=== PATIENT | female | born 1960 | race Caucasian/White ===

== ENCOUNTER → 2023-12-13 | Outpatient (CLI) | payer OTHER, SELFPAY ==
[2023-12-13 08:34] LABS: Basophils # (Auto) 0.1 Thou/mm3 (0.0-0.2); Basophils % (Auto) 1 % (0-2.5); Eosinophils # (Auto) 0.1 Thou/mm3 (0.0-0.5); Eosinophils % (Auto) 1 % (0-10); Hematocrit 43.2 % (36.0-46.0); Hemoglobin 14.1 g/dL (12.0-16.0); Immature Granulocytes % (Auto) 0 % (0-0); Immature Granulocytes Auto 0.01 Thou/mm3 (0.00-0.00); Lymphocytes # (Auto) 2.1 Thou/mm3 (1.0-4.8); Lymphocytes % (Auto) 32 % (10-50); Mean Corpuscular HGB Conc 32.6 g/dl (31.0-37.0); Mean Corpuscular Hemoglobin 30.3 pg (25.0-35.0); Mean Corpuscular Volume 93 fL (80-100); Monocytes # (Auto) 0.7 Thou/mm3 (0.0-0.8); Monocytes % (Auto) 11 % (0-12); Neutrophils # (Auto) 3.6 Thou/mm3 (1.8-7.7); Neutrophils % (Auto) 55 % (37-80); Nucleated Red Blood Cell % 0 /100 WBC (0); Platelet Count 264 Thou/mm3 (140-440); RDW Standard Deviation 42.5 fL (36.4-46.3); Red Blood Count 4.66 Miln/mm3 (4.00-5.20); White Blood Count 6.6 Thou/mm3 (3.6-11.0)
[2023-12-13 08:51] LABS: Alanine Aminotransferase 22 U/L (10-49); Albumin, Serum 4.8 gm/dL (3.4-4.8); Albumin/Globulin Ratio 2.2 (1.2-2.2); Alkaline Phosphatase 93 U/L (46-116); Anion Gap 5 (7-16); Aspartate Amino Transferase 24 U/L (0-34); BUN/Creatinine Ratio 21 Ratio (12-20); Bilirubin,Total 0.5 mg/dL (0.3-1.2); Blood Urea Nitrogen 17 mg/dL (9-23); Calcium 9.7 mg/dL (8.3-10.6); Calcium (Corrected) 9.7 mg/dL (8.5-10.1); Carbon Dioxide 27.9 mMol/L (20.0-31.0); Cardiac Risk Estimate 2.5 RATIO (3.7-5.6); Chloride 107 mMol/L (98-107); Cholesterol 214 mg/dL (132-200); Creatinine (Component) 0.8 mg/dL (0.6-1.3); Globulin 2.2 gm/dL (2.3-3.5); Glucose 98 mg/dL (74-106); HDL Cholesterol 86 mg/dL (40-60); LDL Cholesterol,Calculated 116 mg/dL (0-130); Osmolality,Calculated 280 (275-295); Potassium 4.4 mMol/L (3.4-5.1); Sodium 140 mMol/L (136-145); Thyroid Stimulating Hormone 0.04 uIU/mL (0.55-4.78); Triglycerides 60 mg/dL (30-150); Uric Acid 4.5 mg/dL (3.1-7.8); eGFR > 60 See Note
[2023-12-13 08:56] LABS: Collection Type, Urine Clean Catch
[2023-12-13 09:00] LABS: Follicle Stimulating Hormone 110.53 mIU/mL (See Note); Vitamin B12 617 pg/mL (211-911); Vitamin D 25 Hydroxy Total 34.1 ng/mL (7.3-40.2)
[2023-12-13 09:30] LABS: Glucose Estimated Average 103 mg/dL (80-131); Hemoglobin A1C 5.2 % Hgb (4.8-6.0)
[2023-12-13 09:40] LABS: Bilirubin,Urine Negative (Negative); Blood,Urine Trace (Negative); Clarity,Urine Clear (Clear/Hazy); Color,Urine Lt-Yellow (Lt Yel-Yel); Glucose, Urine Negative (Negative); Ketones,Urine Negative (Negative); Leukocyte Esterase,Urine Negative (Negative); Nitrite,Urine Negative (Negative); PH,Urine 5.5 (5.0-7.0); Protein,Urine Negative (Neg - Trace); RBC,Urine 3 /hpf (0-3); Specific Gravity,Urine 1.018 (1.001-1.035); Squamous Epithelial Cell,Urine 1 /hpf (0-5); Urobilinogen,Urine Negative mg/dL (0.0-1.0); WBC,Urine 1 /hpf (0-5)
[2023-12-21 06:50] LABS: Estrogen, Total, Serum* 93 pg/mL; Luteinizing Hormone* 42.1 mIU/mL; Progesterone,LC/MS* <0.1 ng/mL
== END | disposition home or self-care (01) ==
LOC: COPL 07:39
PROVIDERS: PCP Internal Medicine; Referring Provider Internal Medicine; Visit Provider Internal Medicine
DX: Z00.00 Encounter for general adult medical examination without abnormal findings (principal)
CPT/HCPCS: 36415; 80053; 80061; 81001; 82306; 82607; 82672; 83001; 83002; 83036; 84144; 84443; 84550; 85025

== ENCOUNTER 2023-12-24 05:50 | Emergency (ER) | payer OTHER, SELFPAY ==
[2023-12-24 05:51] VITALS: PULSE 78; RESP 18; O2SAT 98
[2023-12-24 05:55] VITALS: BP 142/69; PULSE 72; RESP 19; TEMP 35.8; O2SAT 95; BMI 26.4
--- NOTE | 2023-12-24 05:56 | PD.EDALLER ---
ED Allergic Reaction RME/HPI General Chief complaint: Allergic Reaction Stated complaint: ALLERGIC REACTION Time Seen by Provider: 12/24/23 05:56 Arrival date/time: 12/24/23 05:50 RME / HPI RME / HPI narrative: 63 year old female presents to the emergency department with a diffuse rash. That continued to get worse from head to toe. The patient could not find her Benadryl and decided to take her EpiPen. The patient denies throat swelling, shortness of breath, chest pain, or change in voice. No identifiable source found. No known allergies. The patient denies starting or stopping medications, toxic ingestions, international travel, unusual foods, changes in detergents, or other unusual activities. No recent travel. The patient has been on an KIM inhibitor for several years without problems. This is happened 4 other times in the last 2 to 3 months Related Data Home Medications ?Medication ?Instructions ?Recorded ?Confirmed citalopram 20 mg tablet 20 mg PO HS 09/30/18 11/04/20 thyroid 180 mg tablet 0.18 mg PO QDAY 11/04/20 11/04/20 Previous Rx's ?Medication ?Instructions ?Recorded conj estrogen-medroxyprogesterone 1 tab PO QDAY 28 days #28 tabs 10/17/23 0.3 mg-1.5 mg tablet (Prempro) Allergies Allergy/AdvReac Type Severity Reaction Status Date / Time tobramycin Allergy Mild Redness of Verified 09/30/18 10:43 Skin ED Exam Narrative Physical exam: General: Non-toxic, well appearing, in no acute distress, and appears state age and well developed and well nourished. Vital signs: Normal. Head: Normocephalic and atraumatic. Eyes: Aproptotic, extraocular movements intact, and pupils equally round. Nose: Nares without evidence of rhinorrhea. Mouth: No oral edema. Throat: No uvula edema. Tolerating secretions. Neck: Supple without menigismus without lympadenopathy. Heart: Regular rate and rhythm without murmur, gallops, or rubs. Lungs: Clear to auscultation without wheezing, rales, or rhonchi. Abdomen: Soft, nontender, no masses, and not distended. Back: No costovertebral angle tenderness. Neurological: Alert and oriented to person, place, and time. Gait normal. Extremities: no cyanosis or edema. Skin: Sharply demarcated mildly erythematous and edematous plaques over entire upper and lower extremities. No noted involvement of the palms, soles, mucus membranes, or conjunctiva. Course Quality Measures none Orders Category Date Time Status Dexamethasone Inj [Decadron Inj] Med 12/24/23 06:04 Discontinued 10 mg IV X1 ONE Dexamethasone Inj [Decadron Inj] Med 12/24/23 06:04 Discontinued 10 mg PO X1 ONE DiphenhydrAMINE INJ [Benadryl Inj] Med 12/24/23 06:04 Discontinued 25 mg IVP X1 ONE Famotidine Inj [Pepcid Inj] Med 12/24/23 06:04 Discontinued 20 mg IVP X1 ONE Vital Signs Vital signs: Vital Signs Temperature 96.5 F L 12/24/23 05:55 Pulse Rate 72 12/24/23 05:55 Respiratory Rate 19 12/24/23 05:55 Blood Pressure 142/69 H 12/24/23 05:55 Pulse Oximetry (%) 95 12/24/23 05:55 Oxygen Delivery Method Room Air 12/24/23 05:55 Allergic Reaction MDM Narrative MDM Narrative:: Arrived with normal O2 saturation on room air without complaints of shortness of breath, tolerating oral secretions, and with no evidence of airway involvement. Diffuse urticarial rash from unknown source. Zantac, Benadryl, and solumedrol given intravenously. 0600: History and physical exam was reviewed, no labs are ordered, and patient is discharged to Dr. Fuentes pending reevaluation and final disposition. Patient data External records reviewed:: [facility] previous records (Allergic reaction) Clinical information provided by:: patient Social determinants that could affect healthcare access:: none Patient has the following chronic illnesses:: Recurrent hives and allergic reaction How is presenting disease/condition affected by chronic disease/condition?: exacerbated by Evaluation data The following diagnostics were reviewed and interpreted by me:: other (specify) (None) Lab and/or radiology exams considered but not ordered:: None Interpretation Summary: None Medications / Prescriptions Medications or Prescriptions considered but not ordered:: None Medication administrations:: Medication Administration History Discontinued Medications Dexamethasone Sodium Phosphate (Dexamethasone Sod Phos Inj 10 Mg/Ml Vial) 10 mg PO X1 ONE Stop: 12/24/23 06:05 Last Admin: 11/15/24 06:14 Dose: Not Given Documented By: FAUSTO Non-Admin Reason: Cancelled by Provider Dexamethasone Sodium Phosphate (Dexamethasone Sod Phos Inj 10 Mg/Ml Vial) 10 mg IV X1 ONE Stop: 12/24/23 06:05 Last Admin: 12/24/23 06:16 Dose: 10 mg Documented By: FAUSTO Diphenhydramine HCl (Diphenhydramine Inj 50 Mg/Ml Vial) 25 mg IVP X1 ONE Stop: 12/24/23 06:05 Last Admin: 12/24/23 06:15 Dose: 25 mg Documented By: FAUSTO Famotidine (Famotidine Inj 10 Mg/Ml Vial 2 Ml) 20 mg IVP X1 ONE Stop: 12/24/23 06:05 Last Admin: 12/24/23 06:16 Dose: 20 mg Documented By: FAUSTO None Consultations Consultation(s) initiated? (list below): No Consultation #1 (Physician, Specialty, Details): None Diagnosis Differential Diagnosis allergic reaction: anaphylaxis, allergic reaction, angioedema, contact dermatitis, adverse reaction to drug and viral enanthem Most likely diagnosis given after review of the tests above:: Allergic reaction Admission Indicated Admission indicated?: not indicated Explain why admission is indicated or not indicated:: Patient signed out to 0 600 physician pending reevaluation and final disposition Admission Request Was there a request for admission?: No Disposition Plan Disposition Plan: other (specify) (Patient is signed out to 0 600 physician pending final disposition and reevaluation) Discharge Plan Plan Disposition Comment: Discharge Prescriptions/Referrals Prescriptions/Med Rec: No Action citalopram 20 mg Tablet 20 mg PO HS thyroid 180 mg Tablet 0.18 mg PO QDAY Prempro 0.3-1.5 mg tablet 1 tab PO QDAY 28 Days Qty: 28 12RF Problem List Clinical Impression: Allergic reaction Patient/Caregiver Discharge Instructions Print Language: Maori
[2023-12-24] MEDS: DiphenhydrAMINE INJ 50 MG/ML VIAL 25 MG IVP (06:15)
[2023-12-24] MEDS: DEXAMETHASONE SOD PHOS INJ 10 MG/ML VIAL IV (06:16)
[2023-12-24] MEDS: FAMOTIDINE INJ 10 MG/ML VIAL 2 ML 20 MG IVP (06:16)
[2023-12-24 07:24] VITALS: BP 113/67; PULSE 63; RESP 16; TEMP 36.6; O2SAT 99
--- NOTE | 2023-12-24 07:31 | PC.NURSE ---
Spoke to Dr. Fuentes at this time regarding pt's POC; per Dr. Fuentes, I will need to re-evaluate pt first before discharge. Please inform pt that this process might take about an hour.
--- NOTE | 2023-12-24 08:28 | EDNOTE_ITS ---
Emergency Room Addendum Addendum Narrative: The patient was signed out to me from Dr. calix pending disposition. The patient has received medication by her. Please see her note. 8:30 AM, the patient is alert awake oriented x 4 GCS of 15. HEENT showing normal throat. Lungs are clear full and equal. Heart is normal. Skin examination she states that the skin rash is gone and I did not find any. That the redness is gone and I did not find any. 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 Please use it appropriately. Benadryl, prednisone and Pepcid as prescribed. See your doctor for recheck in couple days. Return the nearest ER if problems occur
[2023-12-24 08:53] VITALS: BP 119/70; PULSE 77; RESP 15; TEMP 37; O2SAT 97
== END 2023-12-24 08:55 | disposition home or self-care (01) ==
PROVIDERS: Emergency Provider Emergency Medicine; PCP Internal Medicine
DX: T78.40XA Allergy, unspecified, initial encounter (principal); X58.XXXA Exposure to other specified factors, initial encounter
CPT/HCPCS: 99284; J1100; J1200; J3490

== ENCOUNTER → 2024-01-10 | Outpatient (CLI) | payer OTHER, SELFPAY ==
[2024-01-10 08:03] LABS: Misc Send Out* See Sep Rpt
[2024-01-10 08:05] LABS: Misc Send Out* See Sep Rpt
[2024-01-10 08:58] LABS: C-Reactive Protein < 0.4 mg/dL (0.0-0.9)
[2024-01-17 06:49] LABS: ANA Screen, IFA POSITIVE (NEGATIVE); CCP Antibody (IgG)* <16 Units; Complement Component C3* 121 mg/dL (83-193); Complement Component C4c* 22 mg/dL (15-57); DNA (ds) Antibody* <1 IU/mL; IgE, Serum* 40 kU/L (114 OR LESS)
== END | disposition home or self-care (01) ==
LOC: SLAB 07:54
PROVIDERS: PCP Internal Medicine; Referring Provider Allergy & Immunology; Visit Provider Allergy & Immunology
DX: T78.2XXA Anaphylactic shock, unspecified, initial encounter (principal); L50.0 Allergic urticaria; R23.4 Changes in skin texture
CPT/HCPCS: 36415; 82785; 83520; 86003; 86008; 86038; 86039; 86140; 86160; 86200; 86225; 86235

== ENCOUNTER → 2024-02-15 | Outpatient (CLI) | payer OTHER, SELFPAY ==
[2024-02-16 10:05] LABS: BVAG Candida Negative (Negative); Bacterial Vaginosis Markers Negative (Negative); Candida glabrata Negative (Negative); Candida krusei PCR Negative (Negative); Trichomonas Negative (Negative)
== END | disposition home or self-care (01) ==
LOC: SLDO 12:44
PROVIDERS: Referring Provider Specialist; Visit Provider Specialist
DX: B37.89 Other sites of candidiasis (principal); N76.0 Acute vaginitis; A59.01 Trichomonal vulvovaginitis
CPT/HCPCS: 81514

== ENCOUNTER → 2024-05-24 | Outpatient (CLI) | payer OTHER, SELFPAY ==
[2024-05-24 11:49] LABS: Free T4 (Free Thyroxine) 0.85 ng/dL (0.89-1.76); Thyroid Stimulating Hormone 0.36 uIU/mL (0.55-4.78)
== END | disposition home or self-care (01) ==
LOC: COPL 09:57
PROVIDERS: PCP Internal Medicine; Referring Provider Internal Medicine; Visit Provider Internal Medicine
DX: E03.9 Hypothyroidism, unspecified (principal)
CPT/HCPCS: 36415; 84439; 84443

== ENCOUNTER → 2024-10-30 | Outpatient (CLI) | payer OTHER, SELFPAY ==
--- NOTE | 2024-10-30 | XR_ITS ---
Examination: Wrist, right 3 views Technique: Wrist AP, oblique, lateral 3 views Date and time of exam: October 30, 2024 1033 hours INDICATIONS: Swelling on the right side of the wrist beginning 3 days ago. 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 No fractures No erosive arthritis IMPRESSION: Mild osteoarthritis
== END | disposition home or self-care (01) ==
LOC: CDIM 09:56
PROVIDERS: PCP Internal Medicine; Referring Provider Internal Medicine; Visit Provider Internal Medicine
DX: M19.031 Primary osteoarthritis, right wrist (principal)
CPT/HCPCS: 73110

== ENCOUNTER → 2024-11-30 | Outpatient (CLI) | payer OTHER, SELFPAY ==
--- NOTE | 2024-11-30 16:00 | XR_ITS ---
Examination: Breast ultrasound, unilateral, right Date and time of exam: November 30, 2024, 1625 hours INDICATIONS: History of right stereotactic breast biopsy, Technique: Real-time gonzalez scale ultrasonographic imaging performed right breast including all 4 quadrants as well as nipple retroareolar and axillary region. Findings: No cystic or solid mass involving the right breast IMPRESSION: BI-RADS Category 1: Negative study
--- NOTE | 2024-11-30 16:45 | XR_ITS ---
Examination: Screening digital mammography, bilateral Computer aided detection 3-D breast Tomosynthesis, bilateral Date and time of exam: November 30, 2024, 1616 hours, compared to mammograms into June 27, 2020 Indication: Screening Technique: Nonmagnified MLO, CC views of the breasts to been obtained, reconstructed from 3-D Tomosynthesis images. R2 computer aided detection program utilized for evaluation of suspicious masses and/or abnormal calcifications. 3-D Tomosynthesis images obtained. Findings: Scattered areas of fibroglandular density. Stable focal asymmetry with breast biopsy marker upper outer right breast More caudad focal asymmetry 14 mm upper outer right breast Impression: BI-RADS Category 0: Incomplete: Need additional imaging evaluation Recommend additional follow-up spot compression views of new focal asymmetry upper outer right breast posterior depth as well as right breast sonography to complete the work-up
== END | disposition home or self-care (01) ==
PROVIDERS: PCP Internal Medicine; Referring Provider Internal Medicine; Visit Provider Internal Medicine
DX: Z12.31 Encounter for screening mammogram for malignant neoplasm of breast (principal); R92.8 Other abnormal and inconclusive findings on diagnostic imaging of breast
CPT/HCPCS: 76641; 77063; 77067

== ENCOUNTER → 2024-12-13 | Outpatient (CLI) | payer OTHER, SELFPAY ==
--- NOTE | 2024-12-13 12:00 | XR_ITS ---
Examination: Breast ultrasound, unilateral, right complete Date and time of exam: December 13, 2024, 12:39 p.m. INDICATIONS: Focal asymmetry upper outer right breast posterior depth on mammogram November 30, 2024 Technique: Real-time gonzalez scale ultrasonographic imaging performed right breast including all 4 quadrants as well as nipple retroareolar and axillary region. Findings: No cystic or solid mass IMPRESSION: BI-RADS Category 1: Negative study
--- NOTE | 2024-12-13 13:15 | XR_ITS ---
Examination: Diagnostic digital mammography, unilateral, right Computer aided detection 3-D breast Tomosynthesis, unilateral Date and time of exam: 12/13/2024, 12:52 p.m. Comparisons: October 2020 through November 2024 Indications: Further evaluation of focal asymmetry seen on prior screening exam Technique: Nonmagnified MLO, CC views of the right breast have been obtained, reconstructed from 3-D Tomosynthesis images. R2 computer aided detection program utilized for evaluation of suspicious masses and/or abnormal calcifications. 3-D Tomosynthesis images obtained. Technologist: Findings: There are scattered areas of fibroglandular density. No evidence of abnormal masses or suspicious calcifications. The previously described abnormality does not persist on spot compression views and represents superimposition of normal fibroglandular tissue. Impression: BI-RADS category 1: Negative findings (within normal) Recommend 1 year follow-up mammogram
== END | disposition home or self-care (01) ==
LOC: CDIM 12:27
PROVIDERS: PCP Internal Medicine; Referring Provider Internal Medicine; Visit Provider Internal Medicine
DX: R92.311 Mammographic fatty tissue density, right breast (principal)
CPT/HCPCS: 76641; 77061; 77065; G0279

== ENCOUNTER → 2025-01-09 | Outpatient (CLI) | payer OTHER, SELFPAY ==
[2025-01-09 11:43] LABS: Albumin, Serum 4.9 gm/dL (3.4-4.8); Anion Gap 8 (7-16); BUN/Creatinine Ratio 16 Ratio (12-20); Blood Urea Nitrogen 13 mg/dL (9-23); Calcium 9.4 mg/dL (8.3-10.6); Calcium (Corrected) 9.4 mg/dL (8.5-10.1); Carbon Dioxide 27.2 mMol/L (20.0-31.0); Chloride 106 mMol/L (98-107); Creatinine (Component) 0.8 mg/dL (0.6-1.3); Glucose 90 mg/dL (74-106); Osmolality,Calculated 281 (275-295); Phosphorous 3.0 mg/dL (2.4-5.1); Potassium 4.3 mMol/L (3.4-5.1); Sodium 141 mMol/L (136-145); eGFR > 60 See Note
== END | disposition home or self-care (01) ==
PROVIDERS: PCP Internal Medicine; Referring Provider Internal Medicine; Visit Provider Internal Medicine
DX: M25.531 Pain in right wrist (principal)
CPT/HCPCS: 36415; 80069

== ENCOUNTER → 2025-01-11 | Outpatient (CLI) | payer OTHER, SELFPAY ==
--- NOTE | 2025-01-11 08:00 | XR_ITS ---
EXAMINATION: MRI wrist with intravenous contrast TECHNIQUE: Multiple axial sagittal coronal MR wrist images post intravenous administration 15 cc gadolinium INDICATIONS: Palpable lump mass around the right ulnar styloid with swelling 6 months Date and time: December 12, 2024, 0827 hours FINDINGS: Mild narrowing radiocarpal joint Fluid distal to the ulna, moderate with tiny ossified joint bodies distal to the ulna, 4 mm, 3 mm No abnormal osseous enhancement Mild thickening of the extensor carpi ulnaris tendon Flexor tendons intact Normal median nerve No ganglion cyst IMPRESSION: Mild narrowing radiocarpal joint Moderate fluid distal to the ulna with tiny ossified bodies distal to the ulna, 4 mm, 3 mm No occult fracture No bone contusion involving carpal bones Mild thickening of the extensor carpi ulnaris tendon Impression: Moderate fluid distal to the ulna, clinical correlation advised Mild thickening of the extensor carpi ulnaris tendon No fracture or bone contusion No bony exostosis
== END | disposition home or self-care (01) ==
PROVIDERS: PCP Internal Medicine; Referring Provider Orthopaedic Surgery; Visit Provider Orthopaedic Surgery
DX: M25.831 Other specified joint disorders, right wrist (principal)
CPT/HCPCS: 73222